=== PATIENT | male | born 1975 | race Two or more races ===

== ENCOUNTER 2017-11-08 11:18 | Emergency (ER) | payer SELFPAY ==
[~2017-11-08] VITALS: Ht 162.6 cm; Wt 123.8 kg
[2017-11-08 11:28] VITALS: BP 144/94
== END 2017-11-08 19:28 | disposition left against medical advice (07) ==
LOC: ER 11:18
DX: M54.2 Cervicalgia (principal); R42 Dizziness and giddiness; Z53.21 Procedure and treatment not carried out due to patient leaving prior to being seen by health care provider
CPT/HCPCS: 93005